=== PATIENT | female | born 1980 | race Caucasian/White ===

== ENCOUNTER 2018-06-16 11:17 | Emergency (ER) | payer OTHER ==
[~2018-06-16] VITALS: Ht 160 cm; Wt 70.3 kg
--- OUTSIDE RECORDS SUMMARY | 2018-06-16 11:21 | XMS REPORT ---
Author Author [facility] Address Unknown Phone Unavailable Care Team Providers Care Security Systems Engineer Name Role Phone UNKNOWN, REFFERING PP Unavailable [facility], TREATMENT Unavailable Unavailable Problems This patient has no known problems. Allergies, Adverse Reactions, Alerts This patient has no known allergies or adverse reactions. Medications This patient has no known medications. Results Test Description Test Time Test Comments Text Results Atomic Results Result Comments RPR, Qual 2016-12-24 05:30:00 RPR (test code=RPR) Non-Reactive Non-Reactive Hepatic Function [id number] 18:41:00* Test Item Value Reference Range Comments Prot Total (test code=TP) 7.0 g/dL 6.4-8.3 Albumin (test code=ALB) 4.5 g/dL 3.5-5.2 A/G Ratio (test code=AGRATIO) 1.8 Ratio Globulin (test code=GLOB) 2.5 2.9-3.1 Bili Total (test code=TBIL) 0.2 mg/dL 0.1-0.9 Bili Direct (test code=DBIL) <0.2 mg/dL 0.0-0.3 Bili Indirect (test code=IBIL) 0.1 Alk Phos (test code=APHOS) 48 U/L 35-104 AST (test code=AST) 17 U/L 1-32 ALT (test code=ALT) 10 U/L 1-33 Urinalysis [id number] 17:57:00* Test Item Value Reference Range Comments Color (test code=COLOR) Yellow Yellow,Straw,Pl yellow Clarity (test code=CLAR) Clear Clear Specific [place] (test code=SPGR) 1.021 1.001-1.035 pH (test code=PH) 5.0 5.0-9.0 Ketone (test code=KET) Negative mg/dL Negative Glucose (test code=GLUCUR) Negative mg/dL Negative Protein (test code=PROT) Negative mg/dL Negative Bilirubin (test code=BILI) Negative mg/dL Negative Occult Blood (test code=UDOB) Negative Negative Urobilinogen (test code=UROB) 0.2 mg/dL 0.2-1.0 Nitrite (test code=NIT) Positive Negative Leuk Esterase (test code=LEUK) Small Negative Micros Exam (test code=MEXAM) Indicated Epithelial Cells (test code=EPI) 15-19 /LPF 0-30 WBC, Urine (test code=UWBC) 2-5 /HPF 0-5 RBC, Urine (test code=URBC) None Seen /HPF 0-5 Bacteria (test code=BACT) Many /HPF CBC with [id number] 17:43:00* Test Item Value Reference Range Comments WBC (test code=WBC) 5.3 K/cumm 4.4-10.5 RBC (test code=RBC) 4.40 M/cumm 3.75-5.20 Hemoglobin (test code=HGB) 13.5 gm/dL 12.2-14.8 Hematocrit (test code=HCT) 39.6 % 36.5-44.4 MCV (test code=MCV) 90.1 fL 80-100 MCH (test code=MCH) 30.6 pg 27.0-32.5 MCHC (test code=MCHC) 34.0 g/dL 32.0-37.5 RDW (test code=RDW) 13.5 % 11.5-14.5 Platelet Count (test code=PLTCT) 194 K/cumm 140-440 MPV (test code=MPV) 9.4 fL Diff Method (test code=DIFFM) Auto Neutrophil (test code=NEUT) 59.3 % 36-70 Lymphocyte (test code=LYMPH) 30.8 % 12-44 Monocyte (test code=MONO) 6.7 % 0-11 Eosinophil (test code=EOS) 2.6 % 0-7 Basophil (test code=BASO) 0.5 % 0-2 Neutro Abs (test code=ANEUT) 3.2 K/cumm 1.6-7.4 Lymph Abs (test code=ALYMPH) 1.6 K/cumm 0.5-4.6 [place] Abs (test code=AMONO) 0.4 K/cumm 0.0-1.2 Eos Abs (test code=AEOS) 0.14 K/cumm 0.00-0.74 Baso Abs (test code=ABASO) 0.0 K/cumm 0.00-0.21
--- OUTSIDE RECORDS SUMMARY | 2018-06-16 11:21 | XMS REPORT | Encounter Summary ---
Author Organization Unknown Address [address] [place] [address] Phone [phone] Reason for Visit Bilateral Medical Complaint Instructions 1. Acute urinary tract infection urinalysis, dipstick nitrofurantoin monohydrate/macrocrystals 100 mg capsule 2. Cigarette smoker 3. Body mass index 25-29 - overweight body mass index: care instructions Discussion Note Pt is in NAD; Verbalizes understanding of all instructions with no questions at this time. Plan of Care Patient Instructions Recommend proper hydration and frequent urination. Avoid douching, Recommend urinating after sexual intercourse. Recommend wipe front to back after urinating. Avoid using tubs. Take medications as prescribed. Follow up with your PCP or urologist within 2-3 days if symptoms worsen as discussed. I recommend smoking cessation. Recommend follow a low sodium/fat/carb diet and exercise 30-45 mins/d 3-4 days a week once symptoms resolve. Reminders Provider Appointments None recorded. Lab Urinalysis, Dipstick 02/07/2018 [facility] Referral None recorded. Procedures None recorded. Surgeries None recorded. Imaging None recorded. Medications Name Start Date alprazolam 1 mg tablet TK 1 T PO BID citalopram 40 mg tablet TK 1/2 A T PO QD nitrofurantoin monohydrate/macrocrystals 100 mg capsule Take 1 capsule every 12 hours by oral route as directed for 7 days. Medications Administered None recorded. Vitals Height Weight BMI Blood Pressure 5 ft 3 in 160 lbs 28.3 kg/m2 112/70 mm[Hg] Lab Results Date Name Specimen Result Interpretation Description Value Range Status Address 02/07/2018 Urinalysis, Dipstick Color : Janneth [facility]: [address] [place] [address] Clarity : Cloudy [facility]: [address] [place] [address] Leukocytes : Moderate [facility]: [address] [place] [address] Nitrites : Positive [facility]: [address] [place] [address] Urobilinogen : Normal [facility]: [address] [place] [address] Protein : Negative [facility]: [facility] Ph : 7.5 [facility]: [facility] Blood : Moderate [facility]: [address] [facility] Specific [place] : 1.015 [facility]: [facility] Ketones : Negative [facility]: [facility] Bilirubin : Negative [facility]: [facility] Glucose Negative [facility]: [facility] Allergies Code Code System Name Reaction Severity Status Onset Penicillins Active Problems Name Status Onset Date Source Body Mass Index 25-29 - Overweight Active 02/07/2018 Acute Urinary Tract Infection Active 02/07/2018 Cigarette Smoker Active 02/07/2018 Procedures Date Name Performed by Delivery Information not available Tubal Ligation Information not available Vaccine List Vaccine Type influenza, unspecified formulation 05/10/2016 Tdap 10/23/2015 Social History Smoking Status Current Every Day Smoker Past Encounters 02/07/2018 Acute Urinary Tract Infection; Cigarette Smoker; Body Mass Index 25-29 - Overweight Trinity Carrasco, [facility]-C: [address] [place] [address], Ph. History of Present Illness Kekhnr-HAG-Asbumsi Reported By: Patient HPI: Location: abdomen, urethra. Quality: pain, pressure, burning, sharp. Severity: worsening. Duration: constant, symptoms lasting over 2 weeks; intermittent for 2-3 months with acute exacerbation x 1 week. Onset/Timing: worse. Context: no known exposure to STD, no prior history of STDs, sexually active, LMP01/29/2018, heterosexual, vaginal intercourse, history of urine cultures/antibiotic treatment, wipes anterior to posterior, voids after intercourse, history of kidney stones. Modifying factors OTC medication. Associated Symptoms: no jaundice, no blisters on genitals, no rash on genitals, no muscle aches, flank pain, burning sensation during urination, urgency, urinary frequency, abdominal pain, feeling of incomplete emptying of bladder, headache Review of Systems Basic Reported By: Patient Constitutional: Constitutional: no fever Eyes: Eyes: no eye complaints Oblc-Oskm-Xcqco-Throat: Ears: no ear complaints. Nose: no nose/sinus problems. Mouth/Throat: no sore throat, no bleeding gums, no mouth complaints, no teeth problems Cardiovascular: Cardiovascular: no chest pain, no shortness of breath, no known heart murmur Respiratory: Respiratory: no cough, no wheezing, no shortness of breath Gastrointestinal: Gastrointestinal: no abdominal pain, no vomiting / diarrhea Genitourinary: Genitourinary: dysuria, urinary urgency; and frequency of urination, chills, bilateral flank pain Musculoskeletal: Musculoskeletal: no muscle aches, no muscle weakness, no arthralgias/joint pain, no back pain Skin: Skin: no abnormal / changing mole, no jaundice, no rashes Neurologic: Neurologic: no loss of consciousness, no weakness, no numbness, no seizures, no dizziness, no headaches Physical Exam Adult Basic, Adult Female Complete Reported By: Patient Constitutional: General Appearance: healthy-appearing, well-nourished, well-developed, overweight. Level of Distress: NAD. Ambulation: ambulating normally Psychiatric: Mental Status: active and alert. Orientation: to time, to place, to person Eyes: Lids and Conjunctivae: non-injected, no pallor; no periorbital edema Neck: Neck: supple. Lymph Nodes: no cervical LAD Lungs: Respiratory effort: no dyspnea, no tachypnea, no use of accessory muscles, no intercostal retractions. Auscultation: breath sounds normal Cardiovascular: Heart Auscultation: RRR, no murmurs Musculoskeletal:: Extremities: no edema Neurologic: Gait and Station: normal gait Abdomen: Bowel Sounds: normal. Inspection and Palpation: soft, non-distended, no guarding, no rebound tenderness, no masses, no CVA tenderness, suprapubic tenderness. Hernia: none palpable
--- OUTSIDE RECORDS SUMMARY | 2018-06-16 11:21 | XMS REPORT | Encounter Summary ---
Author Organization Unknown Address [address] [place] [address] Phone [phone] Reason for Visit Medical Complaint Instructions 1. Acute maxillary sinusitis sinusitis: care instructions fluticasone 50 mcg/actuation nasal spray,suspension azithromycin 250 mg tablet Discussion Note Pt is in NAD; Verbalizes understanding of all instructions with no questions at this time. Plan of Care Patient Instructions Take fluticasone as needed for congestion. [place] one spray in each nostril twice a day. Take a warm, steamy shower, blow your nose thereafter, and spray in each nostril. Tilt your head up for about 10 seconds and breath through your mouth. Do not sniff or snort the medication in or else the medication will go to your throat and not be absorbed appropriately. Alternate with Ibuprofen and acetaminophen every 4hrs as needed for pain/fever/headache. Proper hydration Take Antibiotic as directed and with food to avoid GI distress and start probiotics as well to aid with GI health Take medications as prescribed and follow up with a PCP within 2-3 if symptoms worsen as discussed. Reminders Provider Appointments None recorded. Lab None recorded. Referral None recorded. Procedures None recorded. Surgeries None recorded. Imaging None recorded. Medications Name Start Date azithromycin 250 mg tablet TAKE 2 TABLETS (500 MG) BY ORAL ROUTE ONCE DAILY FOR 1 DAY THEN 1 TABLET (250 MG) BY ORAL ROUTE ONCE DAILY FOR 4 DAYS fluticasone 50 mcg/actuation nasal spray,suspension [place] 1 spray twice a day by intranasal route as needed for 14 days. Medications Administered None recorded. Vitals Height Weight BMI Blood Pressure 5 ft 3 in 120 lbs 21.3 kg/m2 110/74 mm[Hg] Lab Results None recorded. Allergies Code Code System Name Reaction Severity Onset Penicillins Problems Name Status Onset Date Source Otitis Media Active Encounter Influenza Active Encounter Procedures Date Name Performed by Delivery Information not available Tubal Ligation Information not available Vaccine List Vaccine Type influenza, unspecified formulation 05/09/2016 Social History Smoking Status Current Every Day Smoker Past Encounters 01/03/2017 Acute Maxillary Sinusitis Trinity Pengy, [employer] MEDICINE SPECIALIST-C: [address] [place] [address], Ph. History of Present Illness Dhuaw-Wurcxnmppg-Vbyzujo Reported By: Patient HPI: Location: head/sinuses. Quality: nasal/sinus congestion. Duration: 3days. Severity: moderate. Onset/Timing: gradual. Context: no sick contacts, no foreign travel, smoker. Modifying factors: ; none. Associated Symptoms: no sputum production, no shortness of breath, no wheezing, no change in number of pillows needed to sleep at night, no sweats, no significant weight gain, no significant weight loss, no morning cough, no sore throat, no vomiting, no diarrhea, no rash, no nausea, no fever, no muscle aches, no headache, fever; sinus pressure, purulent nasal discharge, and right maxillary pain Review of Systems:ROS as noted in the HPI Review of Systems Basic Reported By: Patient Physical Exam Adult Basic, Adult Female Complete Reported By: Patient Constitutional: General Appearance: healthy-appearing, well-nourished, well-developed. Level of Distress: NAD. Ambulation: ambulating normally Psychiatric: Mental Status: active and alert. Orientation: to time, to place, to person Ipr-Cfqj-Xqjrg-Throat: Ears: no lesions on external ear, no outer ear tenderness, EACs clear, TMs clear. Nose: no lesions on external nose, nares patent, no septal deviation, nasal passages clear, sinus tenderness, nasal discharge, nasal discharge--purulent. Lips, Teeth, and Gums: no mouth or lip ulcers, no bleeding gums, normal dentition. Oropharynx: moist mucous membranes, no erythema, no exudates, tonsils not enlarged Neck: Lymph Nodes: no cervical LAD, no supraclavicular LAD Lungs: Respiratory effort: no dyspnea, no tachypnea, no use of accessory muscles, no intercostal retractions. Auscultation: breath sounds normal Cardiovascular: Heart Auscultation: RRR, no murmurs Neurologic: Gait and Station: normal gait, normal station
--- OUTSIDE RECORDS SUMMARY | 2018-06-16 11:21 | XMS REPORT | Continuity of Care Document ---
Author Author [facility] Interface Address Unknown Phone Unavailable Problems Problem Status Onset Date Classification Date Reported Comments Source Body mass index 25-29 - overweight 02/07/2018 Diagnosis 02/07/2018 [facility] Cigarette smoker 02/07/2018 Diagnosis 02/07/2018 [facility] Acute urinary tract infection 02/07/2018 Diagnosis 02/07/2018 [facility] Body Mass Index 25-29 - Overweight 02/07/2018 Problem 02/07/2018 [facility] Acute Urinary Tract Infection 02/07/2018 Problem 02/07/2018 [facility] Cigarette Smoker 02/07/2018 Problem 02/07/2018 [facility] Acute maxillary sinusitis 01/03/2017 Diagnosis 01/03/2017 [facility] Otitis Media Problem 01/03/2017 [facility] Influenza Problem 01/03/2017 [facility] Medications Medication Details Route Status Patient Instructions Ordering Provider Order Date Source Alprazolam 1 MG Oral Tablet alprazolam 1 mg tablet TK 1 T PO BID Active [facility] Citalopram 40 MG Oral Tablet citalopram 40 mg tablet TK 1/2 A T PO QD Active [facility] NITROFURANTOIN, MACROCRYSTALS 25 MG / Nitrofurantoin, Monohydrate 75 MG Oral Capsule nitrofurantoin monohydrate/macrocrystals 100 mg capsule Take 1 capsule every 12 hours by oral route as directed for 7 days. Active [facility] Azithromycin 250 MG Oral Tablet azithromycin 250 mg tablet TAKE 2 TABLETS (500 MG) BY ORAL ROUTE ONCE DAILY FOR 1 DAY THEN 1 TABLET (250 MG) BY ORAL ROUTE ONCE DAILY FOR 4 DAYS Active [facility] Fluticasone propionate 0.05 MG/ACTUAT Metered Dose Nasal [place] fluticasone 50 mcg/actuation nasal spray,suspension [place] 1 spray twice a day by intranasal route as needed for 14 days. Active [facility] Allergies, Adverse Reactions, Alerts Substance Category Reaction Severity Reaction type Status Date Reported Comments Source Penicillins Allergy to substance 04/11/2014 [facility] Immunizations Immunization Date Given Site Status Last Updated Comments Source influenza, unspecified formulation 05/10/2016 completed [facility] Tdap 10/23/2015 completed [facility] Results Order Name Results Value Reference Range Date Interpretation Comments Source Urinalysis macro (dipstick) panel - Urine COLOR : Janneth 02/07/2018 [facility] Urinalysis macro (dipstick) panel - Urine CLARITY : Cloudy 02/07/2018 [facility] Urinalysis macro (dipstick) panel - Urine LEUKOCYTES : Moderate 02/07/2018 [facility] Urinalysis macro (dipstick) panel - Urine NITRITES : Positive 02/07/2018 [facility] Urinalysis macro (dipstick) panel - Urine UROBILINOGEN : Normal 02/07/2018 [facility] Urinalysis macro (dipstick) panel - Urine PROTEIN : Negative 02/07/2018 [facility] Urinalysis macro (dipstick) panel - Urine pH : 7.5 02/07/2018 [facility] Urinalysis macro (dipstick) panel - Urine BLOOD : Moderate 02/07/2018 [facility] Urinalysis macro (dipstick) panel - Urine SPECIFIC GRAVITY : 1.015 02/07/2018 [facility] Urinalysis macro (dipstick) panel - Urine KETONES : Negative 02/07/2018 [facility] Urinalysis macro (dipstick) panel - Urine BILIRUBIN : Negative 02/07/2018 [facility] Urinalysis macro (dipstick) panel - Urine GLUCOSE Negative 02/07/2018 [facility] Vital Signs Vital Sign Value Date Comments Source Diastolic (mm Hg) 70 02/07/2018 [facility] Height 63 02/07/2018 [facility] Systolic (mm Hg) 112 02/07/2018 [facility] Weight 160 02/07/2018 [facility] Diastolic (mm Hg) 74 01/03/2017 [facility] Height 63 01/03/2017 [facility] Systolic (mm Hg) 110 01/03/2017 [facility] Weight 120 01/03/2017 [facility] Encounters Location Location Details Encounter Type Encounter Number Reason For Visit Attending Provider ADM Date DC Date Status Source [place] - [facility] - [id number] Corley-C: [address] [place] [address], Ph. [id number] Trinity Carrasco 01/03/2017 [facility] [place] - [facility] - [id number] Carrasco, [employer]-C: [address] [facility], [place] [address], Ph. [id number] Trinity Carrasco 02/07/2018 [facility] Procedures Procedure Code Date Perfomer Comments Source Delivery [address] [facility] Tubal Ligation [facility] Delivery [facility]
[2018-06-16] MEDS ORDERED: SODIUM CHLORIDE 0.9% 1000ML 1,000 ML IV SCH (11:30)
[2018-06-16 11:42] LABS: BASOPHILS # (AUTO) 0.1 (0.0-0.1); BASOPHILS % 0.7 % (0.0-1.0); HEMATOCRIT 44.1 % (34.2-44.1); HEMOGLOBIN 15.2 g/dL (12.0-16.0); LYMPHOCYTES # (AUTO) 1.7 (1.0-3.2); LYMPHOCYTES % 24.9 % (18.0-39.1); MEAN CORPUSCULAR HEMOGLOBIN 29.9 pg (28-32); MEAN CORPUSCULAR HGB CONC 34.5 g/dL (31-35); MEAN CORPUSCULAR VOLUME 86.8 fL (81-99); MONOCYTES # (AUTO) 0.4 (0.2-0.8); MONOCYTES % 5.3 % (4.4-11.3); NEUTROPHILS # (AUTO) 4.7 (2.1-6.9); PLATELET COUNT 228 x10e3/uL (140-360); RED BLOOD COUNT 5.08 x10e6/uL (3.6-5.1); RED CELL DISTRIBUTION WIDTH 12.4 % (11.7-14.4)
[2018-06-16] MEDS ORDERED: CEFTRIAXONE SOD 1 GM VIAL IM ONE (12:00)
[2018-06-16] MEDS ORDERED: KETOROLAC TROMETHAMINE 30 MG/ML VIAL IV ONE (12:00)
[2018-06-16 12:08] LABS: ALANINE AMINOTRANSFERASE 10 IU/L (0-55); ALBUMIN 4.2 g/dL (3.5-5.0); ALBUMIN/GLOBULIN RATIO 1.2 (0.8-2.0); ALKALINE PHOSPHATASE 91 IU/L (40-150); ANION GAP 16.3 mmol/L (8-16); BLOOD UREA NITROGEN 7 mg/dL (7-26); BUN/CREATININE RATIO 7 (6-25); CALCIUM 9.6 mg/dL (8.4-10.2); CARBON DIOXIDE 25 mmol/L (22-29); CHLORIDE 102 mmol/L (98-107); CREATININE, SERUM 0.98 mg/dL (0.57-1.11); EST GLOMERULAR FILTRATION RATE > 60 ML/MIN (60-); GLUCOSE 73 mg/dL (74-118); LIPASE 23 U/L (8-78); POTASSIUM 4.3 mmol/L (3.5-5.1); SODIUM 139 mmol/L (136-145)
[2018-06-16 12:12] LABS: CLARITY,URINE CLEAR (CLEAR); COLOR,URINE YELLOW (YELLOW); LEUKOCYTE ESTERASE ,URINE NEGATIVE (NEGATIVE); NITRITE,URINE NEGATIVE (NEGATIVE); PROTEIN,URINE DIPSTICK NEGATIVE (NEGATIVE)
[2018-06-16 12:13] LABS: BACTERIA,URINE FEW /HPF; BILIRUBIN,URINE NEGATIVE (NEGATIVE); EPITHELIAL CELLS,URINE FEW /LPF; KETONES,URINE NEGATIVE (NEGATIVE); URINE UROBILINOGEN 0.2 mg/dL (0.2 - 1); WBC,URINE (MAN) 0-5 /HPF (0-5)
[2018-06-16] MEDS ORDERED: CEFTRIAXONE SOD 1 GM VIAL IV SCH (12:15)
--- NOTE | 2018-06-16 14:53 | Diagnostic Imaging Report ---
EXAM: CT Abdomen and Pelvis WITHOUT contrast INDICATION: Pain COMPARISON: None. TECHNIQUE: Abdomen and Pelvis was scanned utilizing a multidetector helical scanner without the use of IV contrast. Coronal and sagittal reformations were obtained. IV CONTRAST: None COMPLICATIONS: None RADIATION DOSE: Total DLP: 269 mGy*cm Estimated effective dose: (DLP x 0.015 x size factor) mSv CTDIvol has been reviewed. It is below the limits set by the Radiation Protocol Committee (RPC). Appropriate CT dose reduction techniques were utilized. FINDINGS: Abdomen: Lung Bases: No acute findings. Solid Organs: Gallbladder decompressed, limiting evaluation. Nonenhanced images of the liver, adrenals, spleen, and pancreas are unremarkable. No hydronephrosis, renal, or ureteral calculi. Upper GI Tract: No small bowel obstructive changes. Vascularity: No aortic vascular calcifications or aneurysm. Lymph Nodes: Within limitations of nonenhanced exam, no suspicious adenopathy. Other: Small fat-containing umbilical hernia. Pelvis: Bladder: Unremarkable. Other: Uterus/adnexa suboptimally evaluated nonenhanced CT, grossly unremarkable. Trace pelvic free fluid statistically leaking or ruptured ovarian cyst. Colon: No acute colonic findings. Appendix not inflamed. Bones: No acute findings. IMPRESSION: 1. No acute findings. Signed by: Dr. Javier Au MD on 06/16/2018 2:49 PM
== END 2018-06-16 15:25 | disposition home or self-care (01) ==
LOC: ER 11:21
DX: R30.0 Dysuria (principal); R31.9 Hematuria, unspecified; R10.30 Lower abdominal pain, unspecified; R11.0 Nausea
CPT/HCPCS: 36415; 74176; 80053; 81001; 83690; 84702; 85025; 87086; 96374; 96375; 99283; J0696; J1885; J7030

== ENCOUNTER → 2019-11-11 | Day surgery (SDC) | payer BC, OTHER ==
[~2019-11-11] MED LIST: ALPRAZOLAM1 MG PO; BIRTH CONTROL PILL PO; DICYCLOMINE HCL20 MG PO; FENTANYL CITRATE/PF 100MCG/2 ML INJ ONE; METHADONE HCL40 MG PO; METOCLOPRAMIDE HCL 10 MG/2ML VIAL ONE; MIDAZOLAM HCL 2 MG/2 ML VIAL ONE; ONDANSETRON HCL INJ 2MG/ML 2ML 2 MG/ML VIAL ONE; PANTOPRAZOLE 40 MG 10ML VIAL ONE; PROAIR HFA INH8.5 GM INH; PROPOFOL IV EMULSION 10 MG/ML 50 ML VIAL ONE
[2019-11-11 13:00] VITALS: BP 100/63
--- NOTE | 2019-11-11 18:57 | Operative Report ---
DATE OF PROCEDURE: SURGEON: Jero Rosa MD PROCEDURE: EGD with biopsies. INDICATIONS FOR PROCEDURE: Upper abdominal pain, nausea, and vomiting. MEDICATIONS: The patient was done under MAC, please see anesthesiologist's note. PROCEDURE IN DETAIL: With the patient in left lateral decubitus position, a flexible fiberoptic Olympus gastroscope was introduced into the esophagus under direct visualization without any difficulty. There was some patchy erythema noted in distal esophagus. Minute tongue of velvety red mucosa was noted to extend proximally from the GE junction and biopsies were obtained to rule out Milner. The scope was then advanced into the stomach. Mucosa overlying the antrum and the body revealed some patchy erythema and dddi-jw-yuuxlobc edema, biopsies were obtained, and sent to stain for H pylori. There was what appears to be pancreatic rest in the antrum along the greater curvature which was biopsied. The pylorus was intubated with ease and the scope was advanced all the way to the second portion of the duodenum. Biopsies were obtained from the proximal second portion as well as from the duodenal bulb. The scope was then withdrawn back into the stomach and retroflexed mucosa overlying the fundus and cardia appeared to be within normal limits. The scope was then straightened out and was subsequently withdrawn. The patient tolerated the procedure well. IMPRESSION: 1. Distal esophagitis, mild. 2. Rule out Milner esophagus. 3. Gastritis, biopsied, biopsies sent to stain for Helicobacter pylori. 4. Rule out pancreatic rest, antrum. 5. Rule out sprue. PLAN: Follow up histology. Initiate Protonix 40 mg one p.o. q.a.m. before meals. Jero Rosa MD [facility] [place] /[id number]
== END | disposition home or self-care (01) ==
LOC: OR 09:29
PROVIDERS: ATTEND Internal Medicine Gastroenterology
DX: K29.70 Gastritis, unspecified, without bleeding (principal); K21.0 Gastro-esophageal reflux disease with esophagitis; K22.8 Other specified diseases of esophagus; R63.0 Anorexia; J45.909 Unspecified asthma, uncomplicated; G89.29 Other chronic pain; F41.9 Anxiety disorder, unspecified; Z88.0 Allergy status to penicillin; Z01.812 Encounter for preprocedural laboratory examination; Z11.59 Encounter for screening for other viral diseases; Z68.30 Body mass index [BMI] 30.0-30.9, adult; Z80.0 Family history of malignant neoplasm of digestive organs
CPT/HCPCS: 43239; 81025; 87635; C9113; J2250; J2405; J2704; J2765; J3010